=== PATIENT | male | born 1955 | race Caucasian/White ===

== ENCOUNTER 2024-12-01 22:03 | Emergency (ER) | payer SELFPAY ==
[2024-12-01 22:06] VITALS: BP 156/94
--- NOTE | 2024-12-01 23:08 | ED.GENMED ---
History of Present Illness
General
Chief Complaint: Abdominal Pain
Source: patient
Exam Limitations: none
Time Seen by Provider: 12/01/24 23:08
History of Present Illness
History of Present Illness:
69yoM with a history of L inguinal hernia for the past 7 months presenting for evaluation of L groin pain that began this evening. Patient's hernia goes in and out spontaneously. His hernia came out this evening and he started having worsening
pain. He has never had this much pain before from his hernia so he came to the ED. He was able to have a bowel movement today and is passing flatus. He denies any nausea or vomiting. Patient has been seen by his PCP for this and was referred to
general surgery. He was planning on calling tomorrow to make this appointment.
Past History
Past History
ED Past Medical History: Other (diverticulitis)
ED Past Surgical History: None
Social History
Personal:
Living: with family
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
Phy Exam
General Physical Exam
General Presentation: well appearing and no apparent distress
General Skin: warm and dry
General Habitus: normal
General Mental: alert
ENT Exam
ENT Exam: normocephalic
Pulmonary Exam
Pulmonary Exam: no respiratory distress
Gastrointestinal Exam
Gastrointestinal Exam: non tender, soft, non distended and other (L inguinal hernia noted that is easily reducible. No skin changes noted.)
Neurological Exam
Neurological Exam: alert
Rene Coma Scale
Eye Opening: Spontaneous
Verbal Response: Oriented
Motor Response: Obeys Commands
GCS Total Score: 15
Skin Exam
Skin Exam: normal color and warm/dry
Psychiatric Exam
Psychiatric Exam: normal mood/affect
Course
Vital Signs
Initial and Last Documented VS:
Initial Vital Signs
Temp Pulse Resp BP Pulse Ox
98.1 F 104 16 156/94 96
12/01/24 22:06 12/01/24 22:06 12/01/24 22:06 12/01/24 22:06 12/01/24 22:06
Last Documented Vital Signs
Temp Pulse Resp BP Pulse Ox
98.1 F 104 16 156/94 96
12/01/24 22:06 12/01/24 22:06 12/01/24 22:06 12/01/24 22:06 12/01/24 23:10
MDM/Problems Addressed
Differential Diagnosis Includes:
69yoM here with L inguinal pain that started tonight. Known hx of inguinal hernia. No obstructive symptoms. L inguinal hernia noted on exam without skin changes. Hernia able to be easily reduced at bedside with improvement in his pain. Hernia came
back out after standing. He was reassessed about 30 minutes later and hernia again able to be reduced without difficulty consistent with a sliding hernia. Patient feeling much better. No evidence of incarceration. He is stable for outpatient f/u
with general surgery. Strict ED return precautions reviewed.
*Pulse Oximetry
SaO2: 96
Oxygen Mode of Delivery: Room air
Patient hypoxic: no (96%)
*Critical Care Note
Total Time (30-74mins, 75-104mins- exclusive of procedures): Not Applicable
ED Attending Note
-
Portions of this chart may have been created with voice recognition software.� Occasional wrong word or��sound alike� substitutions may have occurred due to the inherent limitations of voice recognition software.
Discharge Plan
Departure
Patient Disposition: Home (Routine Discharge)
Date of Disposition: 12/01/24
Time of Disposition: 23:10
Patient with high blood pressure during this ER visit?: Yes
Discharge Problem:
Left inguinal hernia
Instructions: Groin hernias
Prescriptions:
No Action
metronidazole 500 MG tablet
500 mg PO TID Qty: 30 0RF
ciprofloxacin HCl 500 MG tablet
500 mg PO BID Qty: 20 0RF
hydrocodone-acetaminophen 1 TABLET tablet
1 tab PO Q4HPRN PRN (Reason: pain) Qty: 20 0RF
Referrals:
Grey Gomez MD [Active, Surgical]
Activity Restrictions/Additional Instructions:
Try to reduce your hernia if the pain recurs.
Return to the ER if you are unable to reduce the hernia or develop severe pain.
Please call tomorrow to schedule a follow-up with general surgery.
Interventions
Interventions:
*Risk Screen - Suicide Last Done: 12/01/24 22:06
*General Assessment Last Done: 12/01/24 22:06
*Neglect/Abuse Screening Last Done: 12/01/24 22:06
*Nursing Disposition Last Done: 12/01/24 23:35
Discharge Date and Time
Discharge Date/Time: 12/01/24 23:35
Print Language: ESTONIAN
== END 2024-12-01 23:35 | disposition home or self-care (01) ==
LOC: EMR 22:03
PROVIDERS: EMERGENCY PHYSICIAN Emergency Medicine; FAMILY PHYSICIAN Family Medicine
DX: K40.90 Unilateral inguinal hernia, without obstruction or gangrene, not specified as recurrent (principal)
CPT/HCPCS: 99283

== ENCOUNTER 2025-04-06 06:38 | Day surgery (SDC) | payer MEDICARE, SELFPAY ==
[2025-03-16 14:18] VITALS: BMI 28.5
[2025-04-06] VITALS (13 sets, daily range): BP systolic 124–163; BP diastolic 55–98; BMI 28.5
[2025-04-06] MEDS: NORMOSOL-R/PLASMALYTE-A 1000 IV (06:47)
[2025-04-06] MEDS: TYLENOL 1000 MG PO (06:48)
[2025-04-06] MEDS: DUONEB 3 ML INH (07:02)
--- NOTE | 2025-04-06 09:01 | W.IMMPOSTOP ---
Surgical Immed Post Op Note
-
Primary Surgeon: Jason
Assisting: Alondra MILLER
Pre-op Diagnosis: Recurrent right inguinal hernia, left inguinal hernia
Post-op Diagnosis: Same
Procedure Performed: Robot assisted laparoscopic repair of recurrent right inguinal herniaand left inguinal hernia
Anesthesia Type: GETA
Specimen / Cultures: None
Estimated Blood Loss: 5cc
Complications: None immediate
Operative Findings: Recurrent right femoral defect with large cord lipoma; large deep left inguinal indirect, sac totally reduced, small cord lipoma; B/L XL MID 3D Max
--- NOTE | 2025-04-06 09:03 | OR.RPT ---
Operative Report
Operative Report
Primary Surgeon: Jason
Assisting: Alondra MILLER
Pre-op Diagnosis: Recurrent right inguinal hernia, left inguinal hernia
Post-op Diagnosis: Same
Procedure Performed: Robot assisted laparoscopic repair of recurrent right inguinal hernia and left inguinal hernia
Anesthesia Type: GETA
Specimen / Cultures: None
Estimated Blood Loss: 5cc
Complications: None immediate
Operative Findings: Recurrent right femoral defect with large cord lipoma; large deep left inguinal indirect, sac totally reduced, small cord lipoma; B/L XL MID 3D Max
Date of Surgery: 04/06/25
Indications: This 70M developed a symptomatic left inguinal hernia. On exam a recurrent right inguinal hernia was identified. He asked that we repair both sides today. Robot assisted laparoscopic repair of right inguinal hernia was elected.
Description of procedure:� The patient was taken to the operating room and positioned into supine position. The patient�s abdomen was prepped and draped in standard sterile fashion. A time-out was completed verifying correct patient, procedure,
site, positioning, and implants and special equipment prior to beginning this procedure.
A stab incision was made in the left upper quadrant, a Veress needle was inserted and proper position was confirmed by aspiration and saline drop test. Following this, pneumoperitoneum was created with insufflation of carbon dioxide to 12 mmHg. Then
a 8mm robotic trocar was inserted above and to the left of the umbilicus. A laparoscope was inserted and the area of initial trocar entry and Veress needle placement were both inspected and no injuries were found. Two 8mm trocars were then placed
lateral to the rectus sheath under direct visualization.
Both inguinal regions were inspected and the median umbilical ligament, medial umbilical ligament, and lateral umbilical fold were identified. Attention was turned to the right groin. The peritoneum was incised transversely above the defect and a
flap was developed in the caudad direction. Hawk�s ligament was identified ultimately dissected to its junction with the iliac vein and the space of Retzius was developed bluntly. The dissection was continued inferiorly to the iliopubic tract,
with care taken to avoid injury to the femoral branch of the genitofemoral nerve and the lateral femoral cutaneous nerve. The cord structures were parietalized.
The direct space was inspected and a hernia defect was not identified. The femoral space was inspected and a defect was identified, fat was reduced from the defect. The indirect space was inspected no defect was identified. The canal was inspected
and a large cord lipoma was identified and reduced.
Attention was turned to the left groin and the above process repeated. A large indirect defect and small cord lipoma were reduced.
Extra large right and left MID 3D max mesh was passed through a trocar. The mesh was placed into the preperitoneal space and moved into position to lay flat and completely cover the direct, indirect, and femoral spaces with overlap at the midline.
The mesh was secured into place using 2-0 vicryl suture to Hawk�s ligament medially and laterally. Care was taken to avoid the inferolateral triangles containing the iliac vessels and genital nerves. The peritoneal flap was closed over the mesh
and secured with 2-0 monocryl stratafix suture in similar positions of safety. A small inferior flap rent was repaired with 2-0 vicryl suture. A 14g angiocath was used to decompress the preperitoneal space revealing good seal and all mesh in good
position without folding or curling.
After ensuring adequate hemostasis, the trocars were removed and the pneumoperitoneum allowed to escape. The trocar incisions were closed at the skin level using 4-0 monocryl and topical skin adhesive. Marcaine 0.5% with epinephrine was infiltrated
into the skin around the port incisions. All counts were correct and the patient tolerated the procedure well and was taken to the postanesthesia care unit in stable condition.
The assistance of Alondra KRISHNAMURTHY was required due to the complexity of the procedure. During the procedure she assisted with retraction, resection, and closure of the wound.
[2025-04-06] MEDS: DILAUDID 0.25 MG IV ×3 (09:26→09:49)
== END 2025-04-06 12:15 | disposition home or self-care (01) ==
LOC: SDS 06:38
PROVIDERS: ATTENDING PHYSICIAN Surgery; FAMILY PHYSICIAN Family Medicine
DX: K40.91 Unilateral inguinal hernia, without obstruction or gangrene, recurrent (principal); K40.90 Unilateral inguinal hernia, without obstruction or gangrene, not specified as recurrent
CPT/HCPCS: 49651; 94640; C1781